=== PATIENT | male | born 1935 | race Hispanic/Latino ===

== ENCOUNTER → 2017-05-24 | Outpatient (CLI) | payer OTHER ==
[~2017-05-24] MED LIST: ASPI-1197 PO; ATOR20TA65 PO; FLUT15.88 NS; LISI1TAB13 PO; METO-391 PO; RIVA15TA PO
== END | disposition home or self-care (01) ==
LOC: RAH 15:36
PROVIDERS: ATTEND Family Medicine
DX: M17.0 Bilateral primary osteoarthritis of knee (principal)
CPT/HCPCS: 73562

== ENCOUNTER → 2018-07-31 | Outpatient (CLI) | payer OTHER | END | disposition home or self-care (01) | LOC: SHCH 11:26 | PROVIDERS: ATTEND Internal Medicine Cardiovascular Disease | DX: I87.2 Venous insufficiency (chronic) (peripheral) (principal) | CPT/HCPCS: 93970 ==

== ENCOUNTER 2021-01-07 10:33 | Inpatient (IN) | payer OTHER ==
[2021-01-06 10:53] LABS: BASOPHILS % (AUTO) 0.6 % (0.0-5.0); EOSINOPHILS % (AUTO) 5.6 % (0.0-8.0); HEMATOCRIT 38.2 % (42-54); LYMPHOCYTES % (AUTO) 21.5 % (21.0-51.0); MEAN CORPUSCULAR HEMOGLOBIN 32.1 pg (27.0-33.0); MEAN CORPUSCULAR HGB CONC 32.2 g/dL (32.0-36.0); MEAN CORPUSCULAR VOLUME 99.7 fL (79-99); MONOCYTES % (AUTO) 9.6 % (3.0-13.0); NEUTROPHILS % (AUTO) 62.2 % (40.0-77.0); PLATELET COUNT (AUTO) 182 K/uL (130-400); RED BLOOD CELL COUNT(AUTO) 3.83 MIL/uL (4.50-6.20); RED CELL DISTRIBUTION WIDTH 12.9 % (11.0-15.5); WHITE BLOOD COUNT (AUTO) 6.2 K/uL (4.8-10.8)
[2021-01-06 11:02] LABS: APPEARANCE,URINE Clear (CLEAR); BILIRUBIN,URINE Negative (NEGATIVE); COLOR,URINE Yellow (YELLOW); GLUCOSE, URINE (UA) Negative (NEGATIVE); KETONES,URINE Negative (NEGATIVE); LEUKOCYTE ESTERASE ,URINE Negative (NEGATIVE); NITRATE,URINE Negative (NEGATIVE); OCCULT BLOOD,URINE Negative (NEGATIVE); PH,URINE 5.5 (5.0-8.0); PROTEIN,URINE Negative (NEGATIVE); UROBILINOGEN,URINE 0.2 mg/dL (0.2-1.0)
[2021-01-06 11:05] LABS: INR 1.08 (0.85-1.15); PROTHROMBIN TIME 11.7 SEC (9.6-11.6)
[2021-01-06 11:13] LABS: CREATININE 1.3 mg/dL (0.5-1.5); POTASSIUM 5.4 mmol/L (3.5-5.1)
[2021-01-06 16:15] VITALS: BP 134/60
[~2021-01-07] VITALS: Ht 154.9 cm; Wt 97.3 kg
[2021-01-07] VITALS (16 sets, daily range): BP systolic 94–168; BP diastolic 43–97
[2021-01-07] MEDS: CEFAZOLIN SODIUM 1 GM VIAL IVP SCH ×2 (06:00→18:45)
[~2021-01-07 10:33] MED LIST changes: -ASPI-1197 PO; -FLUT15.88 NS; -LISI1TAB13 PO; +LISI1TAB29 PO; -METO-391 PO; -RIVA15TA PO
[2021-01-07] MEDS ORDERED: LACTATED RINGERS 1000ML 1,000 ML IV ONE (12:17)
[2021-01-07 12:20] LABS: CREATININE 1.2 mg/dL (0.5-1.5); POTASSIUM 4.6 mmol/L (3.5-5.1)
[2021-01-07] MEDS ORDERED: CEFAZOLIN SODIUM 1 GM VIAL ONE (17:55)
[2021-01-07] MEDS ORDERED: PROPOFOL 10 MG/ML 20ML VIAL IV ONE (18:10)
[2021-01-07] MEDS ORDERED: LIDOCAINE PF 100MG/5ML (2%) SYRINGE 5ML ONE (18:10)
[2021-01-07] MEDS ORDERED: SUCCINYLCHOLINE CHLORIDE 20 MG/ML 10 ML VIAL ONE (18:10)
[2021-01-07] MEDS ORDERED: ONDANSETRON 4MG INJ ONE (18:10)
[2021-01-07] MEDS ORDERED: DEXAMETHASONE SOD PHOSPHATE 10MG/ML 1ML VIAL ONE (18:10)
[2021-01-07] MEDS ORDERED: FENTANYL CITRATE PF 50 MCG/1 ML 2ML VIAL ONE (18:11)
[2021-01-07] MEDS ORDERED: ROCURONIUM 10MG/1ML SYR 10 MG/ML ML ONE (18:11)
[2021-01-07] MEDS ORDERED: NEOSTIGMINE 5MG/5ML SYR IV ONE (18:11)
[2021-01-07] MEDS ORDERED: MIDAZOLAM HCL 1 MG/ML 2ML VIAL ONE ×2 (18:11→21:03)
[2021-01-07] MEDS ORDERED: GLYCOPYRROLATE 1 MG/5 ML SYRINGE ONE (18:11)
[2021-01-07] MEDS ORDERED: ROPIVACAINE 0.5% 5MG/ML 30ML IJ ONE (18:21)
[2021-01-07] MEDS ORDERED: EPHEDRINE SULFATE 50 MG/ML AMPULE ONE (18:41)
[2021-01-07] MEDS: ACETAMINOPHEN 500 MG TABLET PO SCH (20:30)
[2021-01-07] MEDS ORDERED: POTASSIUM CHLORIDE 10% ELIXIR 20 MEQ/15 ML UDCUP PO PRN (20:30)
[2021-01-07] MEDS ORDERED: DiphenhydrAMINE HCL 50 MG/ML VIAL IVP PRN (20:30)
[2021-01-07] MEDS ORDERED: LIDOCAINE HCL-MPF 1% 2ML VIAL IV PRN (20:30)
[2021-01-07] MEDS ORDERED: ONDANSETRON 4MG INJ IVP PRN (20:30)
[2021-01-07] MEDS ORDERED: KCL 20 MEQ ERTAB PO PRN (20:30)
[2021-01-07] MEDS ORDERED: POTASSIUM CHLORIDE 20MEQ/100ML 100 ML IV PRN (20:30)
[2021-01-07] MEDS ORDERED: KETOROLAC 15MG/ML VIAL (15MG/ML) IV PRN (20:30)
[2021-01-07] MEDS ORDERED: TEMAZEPAM 15 MG CAPSULE PO PRN (20:30)
[2021-01-07] MEDS ORDERED: TRAMADOL HCL 50 MG TABLET PO PRN (20:30)
[2021-01-07] MEDS ORDERED: OXYCODONE HCL 5 MG TAB PO PRN ×2 (20:30)
[2021-01-07] MEDS: CELECOXIB 200 MG CAP PO SCH (21:00)
[2021-01-07] MEDS: PREGABALIN 25 MG CAP PO SCH (21:00)
[2021-01-07] MEDS: FAMOTIDINE 20MG TAB PO SCH (21:00)
[2021-01-07] MEDS ORDERED: FAMOTIDINE 20MG TAB PO SCH (21:00)
[2021-01-07] MEDS ORDERED: MEPERIDINE-PF 25 MG/ML SYG ONE (21:16)
[2021-01-08] VITALS (10 sets, daily range): BP systolic 91–122; BP diastolic 45–63
[2021-01-08] MEDS: CEFAZOLIN SODIUM 1 GM VIAL IVP SCH ×2 (01:30→09:20)
[2021-01-08] MEDS: ACETAMINOPHEN 500 MG TABLET PO SCH ×3 (04:30→21:08)
[2021-01-08 04:38] LABS: HEMATOCRIT 30.8 % (42-54); MEAN CORPUSCULAR HEMOGLOBIN 32.1 pg (27.0-33.0); MEAN CORPUSCULAR HGB CONC 31.8 g/dL (32.0-36.0); RED BLOOD CELL COUNT(AUTO) 3.05 MIL/uL (4.50-6.20)
[2021-01-08 04:54] LABS: CREATININE 1.4 mg/dL (0.5-1.5); POTASSIUM 5.2 mmol/L (3.5-5.1)
[2021-01-08] MEDS: 0.9%NACL 1000ML 1,000 ML IV SCH ×2 (06:30→14:41)
[2021-01-08] MEDS: CELECOXIB 200 MG CAP PO SCH (09:19)
[2021-01-08] MEDS: APIXABAN 2.5 MG TABLET PO SCH ×2 (09:19→21:07)
[2021-01-08] MEDS: POLYETHYLENE GLYCOL 3350 17 GM POWD.PACK PO SCH (09:19)
[2021-01-08] MEDS: PREGABALIN 25 MG CAP PO SCH ×2 (09:19→21:05)
[2021-01-08] MEDS: TAMSULOSIN HCL 0.4 MG CAP.ER.24H PO SCH (09:20)
[2021-01-08] MEDS ORDERED: KAYEXALATE 15GM/60ML PO SCH (11:00)
[2021-01-08] MEDS ORDERED: LISINOPRIL 20 MG TABLET PO SCH (11:05)
[2021-01-08] MEDS ORDERED: HYDROCHLOROTHIAZIDE 25 MG TABLET PO SCH (11:06)
[2021-01-08 17:48] LABS: POTASSIUM 4.9 mmol/L (3.5-5.1)
[2021-01-08 18:06] LABS: CREATININE 2.1 mg/dL (0.5-1.5)
[2021-01-08] MEDS ORDERED: 0.9% NACL 500ML IV.SOLN 500 ML IV SCH (21:00)
[2021-01-08] MEDS: ATORVASTATIN 20 MG TABLET PO SCH (21:05)
[2021-01-08] MEDS: LACTATED RINGERS 1000ML 1,000 ML IV SCH (21:08)
[2021-01-08] MEDS: FAMOTIDINE 20MG TAB PO SCH (21:08)
[2021-01-09] VITALS (7 sets, daily range): BP systolic 97–120; BP diastolic 30–51
[2021-01-09 04:47] LABS: BASOPHILS % (AUTO) 0.3 % (0.0-5.0); EOSINOPHILS % (AUTO) 2.8 % (0.0-8.0); HEMATOCRIT 23.3 % (42-54); LYMPHOCYTES % (AUTO) 15.2 % (21.0-51.0); MEAN CORPUSCULAR HEMOGLOBIN 31.5 pg (27.0-33.0); MEAN CORPUSCULAR HGB CONC 32.2 g/dL (32.0-36.0); MEAN CORPUSCULAR VOLUME 97.9 fL (79-99); MONOCYTES % (AUTO) 11.1 % (3.0-13.0); NEUTROPHILS % (AUTO) 70.2 % (40.0-77.0); PLATELET COUNT (AUTO) 117 K/uL (130-400); RED BLOOD CELL COUNT(AUTO) 2.38 MIL/uL (4.50-6.20); RED CELL DISTRIBUTION WIDTH 13.2 % (11.0-15.5); WHITE BLOOD COUNT (AUTO) 6.8 K/uL (4.8-10.8)
[2021-01-09 05:07] LABS: CREATININE 2.2 mg/dL (0.5-1.5); MAGNESIUM 1.5 mg/dL (1.80-2.40); POTASSIUM 4.5 mmol/L (3.5-5.1)
[2021-01-09] MEDS ORDERED: MAGNESIUM 2GM PREMIX 50ML 50 ML IV SCH (10:00)
[2021-01-09] MEDS: EPOETIN ALFA-EPBX (NON-ESRD) 10,000 UNIT/ML VIAL SQ SCH ×2 (10:00→13:31)
[2021-01-09] MEDS: IRON SUCROSE COMPLEX 400 MG in 0.9%NACL 50ML 50 ML IV SCH ×2 (10:00→13:31)
[2021-01-09 10:01] LABS: HEMATOCRIT 24.8 % (42-54)
[2021-01-09] MEDS: POLYETHYLENE GLYCOL 3350 17 GM POWD.PACK PO SCH (10:12)
[2021-01-09] MEDS: TAMSULOSIN HCL 0.4 MG CAP.ER.24H PO SCH (10:13)
[2021-01-09] MEDS: APIXABAN 2.5 MG TABLET PO SCH ×2 (10:13→19:53)
[2021-01-09] MEDS: PREGABALIN 25 MG CAP PO SCH ×2 (10:14→19:52)
[2021-01-09] MEDS: FERROUS FUMARATE 324 MG TABLET PO PRN (10:14)
[2021-01-09] MEDS: CALCIUM CARB 500MG PO PRN ×2 (10:14→19:54)
[2021-01-09 10:15] LABS: RETICULOCYTE % (AUTO) 2.34 % (0.42-2.23)
[2021-01-09] MEDS: LACTATED RINGERS 1000ML 1,000 ML IV SCH (10:20)
[2021-01-09 10:51] LABS: % IRON SATURATION 11.7 % (30-44)
[2021-01-09] MEDS ORDERED: COMPOUND IV MISC 1 EACH IVSOLN MISC PRN (12:30)
[2021-01-09] MEDS: ACETAMINOPHEN 500 MG TABLET PO SCH ×2 (13:09→19:54)
[2021-01-09] MEDS: ATORVASTATIN 20 MG TABLET PO SCH (19:54)
[2021-01-09] MEDS: FAMOTIDINE 20MG TAB PO SCH (19:54)
[2021-01-10 04:07] VITALS: BP 113/50
[2021-01-10] MEDS: LACTATED RINGERS 1000ML 1,000 ML IV SCH (04:32)
[2021-01-10] MEDS: ACETAMINOPHEN 500 MG TABLET PO SCH ×3 (04:32→22:14)
[2021-01-10 05:56] LABS: BASOPHILS % (AUTO) 0.3 % (0.0-5.0); EOSINOPHILS % (AUTO) 3.4 % (0.0-8.0); HEMATOCRIT 22.3 % (42-54); MEAN CORPUSCULAR HGB CONC 32.7 g/dL (32.0-36.0); MEAN CORPUSCULAR VOLUME 97.8 fL (79-99); MONOCYTES % (AUTO) 9.3 % (3.0-13.0); NEUTROPHILS % (AUTO) 75.2 % (40.0-77.0); PLATELET COUNT (AUTO) 107 K/uL (130-400); RED BLOOD CELL COUNT(AUTO) 2.28 MIL/uL (4.50-6.20); RED CELL DISTRIBUTION WIDTH 12.9 % (11.0-15.5); WHITE BLOOD COUNT (AUTO) 7.3 K/uL (4.8-10.8)
[2021-01-10 06:21] LABS: CREATININE 1.6 mg/dL (0.5-1.5); MAGNESIUM 2.1 mg/dL (1.80-2.40); POTASSIUM 4.9 mmol/L (3.5-5.1)
[2021-01-10 08:00] VITALS: BP 100/52
[2021-01-10] MEDS: TAMSULOSIN HCL 0.4 MG CAP.ER.24H PO SCH (08:12)
[2021-01-10] MEDS: FERROUS FUMARATE 324 MG TABLET PO PRN (08:12)
[2021-01-10] MEDS: APIXABAN 2.5 MG TABLET PO SCH ×2 (08:18→22:13)
[2021-01-10] MEDS: PREGABALIN 25 MG CAP PO SCH ×2 (08:19→22:13)
[2021-01-10] MEDS: POLYETHYLENE GLYCOL 3350 17 GM POWD.PACK PO SCH (08:20)
[2021-01-10] MEDS: IRON SUCROSE COMPLEX 400 MG in 0.9%NACL 50ML 50 ML IV SCH (09:00)
[2021-01-10 11:46] VITALS: BP 117/52
[2021-01-10] MEDS ORDERED: FERR324T10 PO (14:23)
[2021-01-10] MEDS ORDERED: ACET-2743 PO (14:23)
[2021-01-10] MEDS ORDERED: HYDR-4060 PO (14:23)
[2021-01-10] MEDS ORDERED: APIX2.5T PO (14:23)
[2021-01-10 16:00] VITALS: BP 128/60
[2021-01-10] MEDS ORDERED: BISACODYL 10 MG SUPP.RECT RC PRN (20:30)
[2021-01-10] MEDS: FAMOTIDINE 20MG TAB PO SCH (22:13)
[2021-01-10] MEDS: ATORVASTATIN 20 MG TABLET PO SCH (22:13)
== END 2021-01-10 22:00 | DRG 470 ==
LOC: DAH 10:33 → UNDOADMOB 10:34 → 3AH 10:34 → UNDOADMOB 10:35 → 3AH 10:35 → OBSVTOIN 10:36 → INTOOBSV 01-09 16:09
PROVIDERS: ADMIT Orthopaedic Surgery; ATTEND Orthopaedic Surgery
PROC: 0SRC0J9 Replacement of Right Knee Joint with Synthetic Substitute, Cemented, Open Approach (ICD-10-PCS; principal; 2021-01-07 19:10)
DX: M17.11 Unilateral primary osteoarthritis, right knee (principal); N17.9 Acute kidney failure, unspecified; D62 Acute posthemorrhagic anemia; I48.20 Chronic atrial fibrillation, unspecified; G89.29 Other chronic pain; N18.9 Chronic kidney disease, unspecified; Z20.822 Contact with and (suspected) exposure to COVID-19; K21.9 Gastro-esophageal reflux disease without esophagitis; E78.5 Hyperlipidemia, unspecified; N40.0 Benign prostatic hyperplasia without lower urinary tract symptoms; I12.9 Hypertensive chronic kidney disease with stage 1 through stage 4 chronic kidney disease, or unspecified chronic kidney disease; E87.5 Hyperkalemia; Z88.5 Allergy status to narcotic agent; Z85.46 Personal history of malignant neoplasm of prostate; Z92.21 Personal history of antineoplastic chemotherapy; Z87.891 Personal history of nicotine dependence; Z80.6 Family history of leukemia
CPT/HCPCS: 36415; 80048; 81003; 82550; 82607; 82728; 82746; 82948; 83540; 83550; 83735; 83874; 84100; 84132; 85014; 85018; 85025; 85027; 85045; 85610; 86850; 86900; 86901; 86923; 87088; 87635; 87641; 88305; 88311; 97039; C9803; G0378; J0330; J0690; J1100; J1756; J1885; J2001; J2175; J2250; J2405; J2704; J2710; J2795; J3010; J3475; J3490; J7040; J7120

== ENCOUNTER → 2021-07-08 | Outpatient (CLI) | payer OTHER ==
[~2021-07-08] MED LIST changes: +ACET-2743 PO; +APIX2.5T PO; +FERR324T10 PO; +HYDR-4060 PO; -LISI1TAB29 PO
== END | disposition home or self-care (01) ==
LOC: SHCH 12:44
PROVIDERS: ATTEND Internal Medicine Cardiovascular Disease
DX: I08.8 Other rheumatic multiple valve diseases (principal); I48.21 Permanent atrial fibrillation; I11.9 Hypertensive heart disease without heart failure; G47.33 Obstructive sleep apnea (adult) (pediatric)
CPT/HCPCS: 93306

== ENCOUNTER 2021-08-20 08:22 | Day surgery (SDC) | payer OTHER ==
[2021-08-18 11:48] LABS: BASOPHILS % (AUTO) 0.3 % (0.0-5.0); EOSINOPHILS % (AUTO) 6.6 % (0.0-8.0); HEMATOCRIT 38.6 % (42-54); LYMPHOCYTES % (AUTO) 22.9 % (21.0-51.0); MEAN CORPUSCULAR HEMOGLOBIN 31.3 pg (27.0-33.0); MEAN CORPUSCULAR HGB CONC 32.6 g/dL (32.0-36.0); MONOCYTES % (AUTO) 9.8 % (3.0-13.0); NEUTROPHILS % (AUTO) 60.2 % (40.0-77.0); PLATELET COUNT (AUTO) 169 K/uL (130-400); RED BLOOD CELL COUNT(AUTO) 4.02 MIL/uL (4.50-6.20); RED CELL DISTRIBUTION WIDTH 14.1 % (11.0-15.5); WHITE BLOOD COUNT (AUTO) 5.8 K/uL (4.8-10.8)
[2021-08-18 11:57] LABS: CREATININE 1.3 mg/dL (0.5-1.5); POTASSIUM 5.6 mmol/L (3.5-5.1)
[2021-08-20] VITALS (16 sets, daily range): BP systolic 120–144; BP diastolic 50–78
[~2021-08-20] VITALS: Ht 162.6 cm; Wt 93.4 kg
[~2021-08-20 08:22] MED LIST changes: -ACET-2743 PO; -APIX2.5T PO; -FERR324T10 PO; -HYDR-4060 PO; +LISI1TAB53 PO
[2021-08-20 09:37] LABS: CREATININE 1.3 mg/dL (0.5-1.5); POTASSIUM 4.9 mmol/L (3.5-5.1)
[2021-08-20] MEDS ORDERED: LIDOCAINE HCL 2% VISCOUS 15 ML UDCUP ONE (09:52)
[2021-08-20] MEDS ORDERED: FLUMAZENIL 0.1MG/1ML 5ML VIAL IV ONE (09:53)
[2021-08-20] MEDS ORDERED: FENTANYL CITRATE PF 50 MCG/1 ML 2ML VIAL ONE ×2 (09:54→10:35)
[2021-08-20] MEDS ORDERED: NALOXONE HCL 0.4 MG/1 ML ML ONE (09:54)
[2021-08-20] MEDS ORDERED: 0.9%NACL 1000ML 1,000 ML IV ONE (09:54)
[2021-08-20] MEDS ORDERED: MIDAZOLAM HCL 1 MG/ML 2ML VIAL ONE (09:55)
[2021-08-20] MEDS ORDERED: FURO20TA4 PO (10:22)
[2021-08-20] MEDS ORDERED: ATOR20TA65 PO (10:22)
== END 2021-08-20 13:55 | disposition home or self-care (01) ==
LOC: DAH 08:22
PROVIDERS: ATTEND Internal Medicine Cardiovascular Disease
DX: I37.1 Nonrheumatic pulmonary valve insufficiency (principal); I48.21 Permanent atrial fibrillation; I49.1 Atrial premature depolarization; I10 Essential (primary) hypertension; I25.2 Old myocardial infarction; G47.33 Obstructive sleep apnea (adult) (pediatric); K21.9 Gastro-esophageal reflux disease without esophagitis; Z98.890 Other specified postprocedural states; Z87.891 Personal history of nicotine dependence; Z88.6 Allergy status to analgesic agent; Z79.01 Long term (current) use of anticoagulants; Z79.899 Other long term (current) drug therapy
CPT/HCPCS: 36415 ×2; 80048 ×2; 85025; 93005; 93312; 93325; A4215; A4216; A4221; A4222; A4223 ×3; A4606; A4615; A4657; A4663; A7002; J2250; J3010; J7030; 99152; J2310; J3490